=== PATIENT | male | born 1970 | race Caucasian/White ===

== ENCOUNTER 2017-02-25 16:19 | Inpatient (IN) | payer OTHER ==
--- NOTE | ~2017-02-25 | HP ---
Unit #: [id number] #: [id number] Patient: GILES DOMINGUEZ [id number] [place] [address] [id number] I MR#: [id number] NAME: GILES DOMINGUEZ. ROOM: [facility] Age: 46 Sex: M Admission Date: 02/25/2017 : 1970 Attending Physician: Frankie Wolf M.D. Admitting Physician: Frankie Wolf M.D. Primary Care Physician: Primary Care Physician No HISTORY AND PHYSICAL HISTORY OF PRESENT ILLNESS Giles is a 46 year old admitted to [facility] because of his drug use. He uses methamphetamine. PAST MEDICAL HISTORY History of illicit substance abuse. PAST SURGICAL HISTORY Nothing reported. ALLERGIES No known drug allergies. SOCIAL HISTORY Smokes occasionally. Denies alcohol. Admits to a history of illicit substance abuse to include methamphetamine. FAMILY HISTORY Medically noncontributory. REVIEW OF SYSTEMS CONSTITUTIONAL: No fever or chills. HEENT: Denies any sore throat, ear pain or runny nose. CARDIOVASCULAR: Denies chest pain, irregular heart rhythm or palpitations. CHEST: Denies shortness of breath or cough. No hemoptysis. GASTROINTESTINAL: Denies nausea, vomiting, diarrhea or chronic constipation. ENDOCRINE: Denies history of increased thirst or urination. No recent significant weight loss or gain. GENITOURINARY: Denies dysuria, frequency, or hematuria. SKIN: Denies any rashes. HEMATOLOGIC: Denies history of increased bleeding or bruising. MUSCULOSKELETAL: Denies any hot, swollen joints. No generalized muscle pain. NEUROLOGIC: Denies problems with vision or speech. No frequent, severe headaches. No numbness, tingling or weakness in any extremities. Denies loss of bladder or bowel control. CURRENT MEDICATIONS 1. Celexa 20 mg q.h.s. 2. Protonix 40 mg daily. 3. Zyprexa 10 mg q. 8 hours p.r.n. 4. Trazodone p.r.n. Unit #: [id number] #: [id number] Patient: GILES DOMINGUEZ 5. Milk of Magnesia p.r.n. 6. Maalox p.r.n. 7. Tylenol p.r.n. PHYSICAL EXAMINATION GENERAL: Alert, well-nourished, in no apparent distress. VITAL SIGNS: Blood pressure 132/84, heart rate 80, respirations 16, temperature 98.6. WEIGHT: 190. HEIGHT: 5 feet 11 inches. SKIN: Warm and dry without rash or lesion. HEENT: Normocephalic. TMs not viewed. Oral and nasal passages clear. Conjunctivae clear. PERRLA. EOMs intact. NECK: Supple without lymphadenopathy or thyromegaly. HEART: Regular rate and rhythm without murmur. LUNGS: Clear. ABDOMEN: Soft, nontender. : Not done. EXTREMITIES: No evidence of cyanosis, clubbing or edema. Moves all without focal deficit. NEUROLOGICAL: Grossly within normal limits. Cranial Nerves: II: Visual gonzalez are intact. III, IV AND : Extraocular movements are intact. Pupils are equal, round and reactive to light. V: Facial sensation is grossly normal. VII: Facial movements and expression are normal. VIII: Auditory acuity grossly intact. IX, X: Uvula is midline. Phonation is normal. XI: Patient shrugs shoulders and turns head normally. XII: Tongue protrudes in the midline. Sensory and Motor Function: Sensory and motor sensation is grossly normal. Motor: moves all extremities well. Coordination: Gait is normal. Deep Tendon Reflexes: Intact. IMPRESSION Psychiatric admission. RECOMMENDATIONS PSYCHIATRIC: Per psychiatrist. MEDICAL: See no contraindications to participate in facility's activities. MEDICAL PROGNOSIS Good. MEDICAL CONDITION Stable. Dictated by... Deandra Francisco P.A.-C. for Joshua Freeman/hedy TD: 02/26/2017 18:52 JOB #: [id number] Unit #: [id number] #: [id number] Patient: GILES DOMINGUEZ HISTORY AND PHYSICAL Page 1 of 1 X Deandra Francisco HISTORY AND PHYSICAL
--- NOTE | ~2017-02-25 | DS ---
Unit #: [id number] #: [id number] Patient: GILES DOMINGUEZ [id number] [facility] [address] [place] [address] [id number] I MR#: [id number] NAME: GILES DOMINGUEZ. ROOM: [facility] Age: 46 Sex: M Admission Date: 02/25/2017 : 1970 Discharge Date: 02/27/2017 Attending Physician: Frankie Wolf M.D. Primary Care Physician: Primary Care Physician No DISCHARGE SUMMARY REASON FOR ADMISSION Meth abuse DIAGNOSTIC STUDIES LABORATORY DATA: Remarkable for AST 177, ALT 459. HOSPITAL COURSE Patient was admitted to inpatient unit on February 25 and discharged on February 27, 2017. Patient was treated on the inpatient unit with chemical dependency group, psychoeducation. Patient was responsive to treatment, showed improvement; subsequently, patient was discharged with the plan to follow up in outpatient program. 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 PROGNOSIS Guarded DIET AND ACTIVITY As tolerated. Dictated by... Joshua Case/jeffy TD: 02/28/2017 14:19 JOB #: [id number] Unit #: [id number] #: [id number] Patient: GILES DOMINGUEZ DISCHARGE SUMMARY Page 1 of 1 X Frankie Wolf MD X DISCHARGE SUMMARY
--- NOTE | ~2017-02-25 | PA ---
Unit #: [id number] #: [id number] Patient: GILES MAXWELL [id number] [facility] [address] [place] [address] [id number] MR#: [id number] NAME: GILES MAXWELL. ROOM: [facility] Age: 46 Sex: M Admission Date: 02/25/2017 : 1970 Date of Assessment: 02/26/2017 Attending Physician: Frankie Wolf M.D. Admitting Physician: Frankie Wolf M.D. Primary Care Physician: Primary Care Physician No PSYCHIATRIC ASSESSMENT INFORMANTS The patient reliability, fair informant and chart reliability, good. CHIEF COMPLAINT Substance abuse. HISTORY OF PRESENT ILLNESS Mr. Giles Maxwell is a 46-year-old male, presented with the above-mentioned complaint. The patient currently homeless, poor support system. Reports that he was referred to get assistance to help with the suicidal ideation and addiction. The patient reported suicidal ideation with a plan. The patient planned to jump off the bridge. The patient hopes of dying from carbon monoxide. Currently, homeless. Recently, lost his in an automobile accident. The patient currently dating a heroin addict who resembles his . The patient reported using amphetamines, the patient reported age of onset 31, last use recently and age of onset of tobacco 14. The patient reported longest period of sobriety a month and last period of sobriety in 12/2016. The patient denied any history of blackout, HIV, hepatitis, or any IV drug use. History of withdrawal symptoms such as irritability, restlessness, and anxiety. Needing inpatient admission at this time for psychiatric stabilization. PAST PSYCHIATRIC HISTORY Unremarkable for any previous treatment. FAMILY HISTORY AND SOCIAL HISTORY The patient has poor support system. Currently, homeless. No history of abuse. No legal charges. MEDICAL HISTORY Unremarkable for any chronic medical illness. Musculoskeletal; muscle strength and tone, no atrophy or abnormal movement. Gait normal. MEDICATION HISTORY None. ALLERGIES No known drug allergies. SUBSTANCE ABUSE HISTORY Please see above. REVIEW OF SYSTEMS Unit #: [id number] #: [id number] Patient: GILES MAXWELL HEENT: Eyes, clear. Ears, nose, mouth, and throat; clear. CARDIOVASCULAR: Unremarkable. RESPIRATORY: Unremarkable. GI: Unremarkable. : Unremarkable. SKIN: Unremarkable. LYMPH NODE: Unremarkable. NEUROLOGIC: Unremarkable. ENDOCRINE: Unremarkable. HEMATOLOGIC: Unremarkable. ALLERGIC/IMMUNOLOGIC: Unremarkable. MUSCULOSKELETAL: Muscle strength and tone, no atrophy or abnormal movement. Gait normal. MENTAL STATUS EXAMINATION CONSTITUTIONAL: Measurement of vital signs; temperature 98.3, heart rate 84, respiratory rate 16, and blood pressure 133/85. Height 5 feet 11 inches and weight 190 pounds. GENERAL APPEARANCE: The patient dressed casually. The patient did not show any facial deformity. MUSCULOSKELETAL: Please see above. PSYCHIATRIC EXAMINATION Description of speech; regular rate, normal volume, normal articulation, and coherent. Description of thought process, goal directed. Description of association, intact. Description of abnormal psychotic thinking; the patient denied any hallucinations or delusions, but mood lability, sad, depressed, suicidal ideation, and substance abuse. Description of the patient's judgment: Concerning everyday activity, poor. Social situation, poor. Concerning psychiatric condition, poor. Complete mental status examination; oriented in time, place, and person. Recent and remote memory, fair. Attention span and concentration, fair. Language, able to name object and repeat phrases. Fund of knowledge, aware of current event and passive vocabulary intact. Mood and affect, sad and dysphoric. Insight and judgment, fair to poor. ASSETS AND LIABILITIES Assets, the patient is articulate and able to take care of his ADL. Liability, history of depression and homelessness. ADMITTING DIAGNOSES Psychiatric: Major depressive disorder, recurrent, severe, F33.2 and amphetamine use disorder, severe, F15.20. Secondary diagnosis: Deferred. Medical diagnosis: None. Stressors: Psychosocial stressors. PSYCHIATRIC PLAN AND TREATMENT GOAL AND DISCHARGE PLAN 1. Advised to admit the patient on the inpatient unit. Provide safe, supportive, and structured environment. 2. Ordered labs; CBC, CMP, UA, and UDS. 3. The patient to attend all the programing on the inpatient unit with group therapy, individual therapy, and medication management. Unit #: [id number] #: [id number] Patient: GILES MAXWELL TREATMENT GOAL To attain euthymic mood, gain insight into his problem, and learn coping skills. DISCHARGE PLAN Plan to stabilize the patient and consider followup in outpatient program. ESTIMATED LENGTH OF STAY 3 to 5 days. Dictated by... Frankie Wolf M.D. JUAN/santana TD: 02/26/2017 18:56 JOB #: [id number] PSYCHIATRIC ASSESSMENT Page 1 of 1 X Frankie Wolf MD PSYCHIATRIC ASSESSMENT
[2017-02-26 09:38] LABS: BASOPHIL# 0.1 X10e3 (0-0.3); BASOPHIL% 1.3 % (0-2.5); EOSINOPHIL# 0.1 X10e3 (0-0.7); EOSINOPHIL% 1.9 % (0.0-7.0); HEMOGLOBIN 16.1 gm/dL (13.0-16.0); LYMPHOCYTE# 1.7 X10e3 (1.0-3.5); LYMPHOCYTE% 24.5 % (17.0-45.0); MEAN CELL VOLUME 87.9 FL (83-96); MEAN CORPUSCULAR HEMOGLOBIN 28.4 PG (28-34); MEAN CORPUSCULAR HGB CONC 32.3 g/dL (30-36); MEAN PLATELET VOLUME 8.8 FL (6.5-11.5); MONOCYTE# 0.8 X10e3 (0-1.0); MONOCYTE% 11.6 % (3.0-12.0); NEUTROPHIL# 4.2 X10e3 (1.5-7.1); NEUTROPHIL% 60.7 % (40-75); PLATELET COUNT 221 X10e3 (140-420); RED BLOOD COUNT 5.69 X10e (3.90-5.60); RED CELL DISTRIBUTION WIDTH 14.7 % (11.0-15.5); WHITE BLOOD COUNT 6.8 X10e3 (4.0-10.5)
[2017-02-26 10:05] LABS: DIFF IND NO
[2017-02-26 10:16] LABS: ALBUMIN SERUM 3.5 g/dL (3.5-5.0); BUN/CREATININE RATIO 11.25; CALCIUM SERUM 8.6 mg/dL (8.4-10.2); CREATININE SERUM 0.8 mg/dL (0.6-1.4); GLOM FILT RATE Estimated 107.9 mL/min (>60); POTASSIUM 4.2 mmol/L (3.5-5.1); PROTEIN TOTAL SERUM 5.8 g/dL (6.0-8.3)
== END 2017-02-27 11:00 | disposition home or self-care (01) | DRG 885 ==
LOC: P1E 18:27
PROVIDERS: Psychiatry & Neurology Psychiatry
DX: F33.2 Major depressive disorder, recurrent severe without psychotic features (principal); F15.20 Other stimulant dependence, uncomplicated; Z59.0 Homelessness; Z72.0 Tobacco use; F15.24 Other stimulant dependence with stimulant-induced mood disorder
CPT/HCPCS: 80053; 85025